=== PATIENT | female | born 1975 | race Caucasian/White ===

== ENCOUNTER 2016-11-25 20:57 | Emergency (ER) | payer BC ==
--- NOTE | ~2016-11-25 | ER ---
PATIENT'S NAME: EMRE UTICA Georgina [facility] AGE: 41 Y [address] ROOM: [place] [address] LOCATION: [facility] ADMIT DATE: 11/25/2016 ER/Outpatient Report DISCHARGE DATE: 11/25/2016 FAMILY PHYSICIAN: Adrianna Tovar MD ATTENDING PHYSICIAN: Jason Funez TIME OF PATIENT ARRIVAL: 2057 hours. TIME OF PATIENT EVALUATION: 2245 hours. The patient was not seen in a timely manner due to busy ER. CHIEF COMPLAINT: Migraine headache. HISTORY OF PRESENT ILLNESS: This is a 41-year-old female who presents to the ER with a migraine headache that started today. She states she has a history of migraine headaches, and it is similar to her previous headaches, but it is quite intense. She states that she has been getting them more often lately. She states that she has had no recent illness. No fever or chills. She states this headache is making her feel nauseated. She did try some ibuprofen and a Moody today without relief. She states that, in the clinic, sometimes they will give her Toradol and Phenergan which usually works, and when she comes to the emergency room, she usually gets Benadryl and Compazine. She states that she was wondering if she could just get the shots tonight since she has been here for so long just so that she could go home and rest. The patient denies any other problems at this time. ALLERGIES: PEPTO-BISMOL. MEDICATIONS: Please see medication list, nurse's notes. PAST MEDICAL HISTORY: Lupus and migraines. She has had a x2 and shoulder surgery x2. SOCIAL HISTORY: Denies smoking, drug, or alcohol use. REVIEW OF SYSTEMS: A 10-point review of system was completed and was negative with the exception of those discussed in the HPI. PATIENT'S NAME: EMRE [facility] AGE: 41 Y [address] ROOM: [place] [address] LOCATION: [facility] ADMIT DATE: 11/25/2016 ER/Outpatient Report DISCHARGE DATE: 11/25/2016 FAMILY PHYSICIAN: Adrianna Tovar MD ATTENDING PHYSICIAN: Jason Funez PHYSICAL EXAMINATION: VITAL SIGNS: Height 6 feet stated, weight 78.6 kg taken, blood pressure is 112/74, pulse 100, respirations 18, temperature 97.7 degrees tympanically, and saturation is 96% on room air. Mary Coma Score is 15. GENERAL: Alert, calm female in no acute distress, but she does appear not to feel well. She is in a dark room with sunglasses on. HEENT: Head: Normocephalic. Eyes: Pupils are equal and reactive to light. Ears: TMs display good light reflexes bilaterally. Auditory canals clear. Nose: Turbinates pink with no drainage. Throat: No exudates or erythema. Does display moist mucous membranes. LUNGS: Clear to auscultation bilaterally. No wheeze or crackles. Normal respiratory effort. HEART: Regular rate and rhythm. No lifts, thrills, or murmurs. EXTREMITIES: No clubbing or cyanosis. She does have full range of motion of all limbs. LABS AND X-RAYS: None were done. IMPRESSION: Migraine headache. ASSESSMENT AND PLAN: We did give her Toradol 60 mg intramuscularly along with Phenergan 50 mg intramuscularly. We will send her also home with a prescription for Moody for any breakthrough pain until she can be seen by her primary care physician if she needs to. The patient needs to rest, continue to push fluids, and monitor symptoms. The patient understands and agrees with care. ZULEMA PETERSON PA-C FOR MD ANA LAURA BARBOSA/crystal /[id number] d: t: 11/28/16 1154, OUTPATIENT REPORT
== END 2016-11-25 23:25 | disposition disaster alternative care site (69) ==
LOC: GMED 20:57
DX: G43.909 Migraine, unspecified, not intractable, without status migrainosus (principal); Z98.890 Other specified postprocedural states; Z88.8 Allergy status to other drugs, medicaments and biological substances
CPT/HCPCS: J1885; J2550